=== PATIENT | male | born 1980 | race Two or more races ===

== ENCOUNTER 2025-06-22 15:04 | Emergency (ER) | payer MEDICAID ==
[~2025-06-22] VITALS: Ht 172.7 cm; Wt 80.0 kg
[2025-06-22 15:09] VITALS: BP 118/70; PULSE 70; RESP 18; TEMP 36.8; O2SAT 100
[2025-06-22 19:41] LABS: BASOPHILS % 0.2 % (0.0-2.0); EOSINOPHILS % 1.6 % (0.0-5.0); HEMATOCRIT. 40.7 % (42.0-52.0); HEMOGLOBIN. 13.4 g/dL (14.0-18.0); LYMPHOCYTES % 22.1 % (20.0-50.0); MEAN PLATELET VOLUME 7.6 fl (7.4-10.4); MONOCYTES % 6.8 % (2.0-8.0); NEUTROPHILS % 69.3 % (40.0-76.0); PLATELET 292 x1000/uL (130-400); RED BLOOD CELL COUNT 4.72 mill/uL (4.7-6.1); RED CELL DISTRIBUTION WIDTH 13.7 % (11.6-14.6)
[2025-06-22 19:57] LABS: CREATININE 0.6 mg/dL (0.6-1.3); UREA NITROGEN BLOOD 8 mg/dL (9-23)
[2025-06-22 19:58] LABS: TROPONIN I HIGH SENSITIVITY < 4 ng/L (3.0-53)
== END 2025-06-22 20:55 | disposition home or self-care (01) ==
LOC: ER 15:04 → CMPBEDREQ 17:41 → ER 20:55
DX: S92.355A Nondisplaced fracture of fifth metatarsal bone, left foot, initial encounter for closed fracture (principal); R06.02 Shortness of breath; X58.XXXA Exposure to other specified factors, initial encounter; Y93.89 Activity, other specified; Y92.89 Other specified places as the place of occurrence of the external cause; Y99.8 Other external cause status
CPT/HCPCS: 29515; 36415; 73630; 80048; 80320; 83880; 84484; 85025; 99284; G0480